=== PATIENT | female | born 1995 | race Caucasian/White ===

== ENCOUNTER 2021-09-16 16:12 | Outpatient (CLI) | payer BC ==
[~2021-09-16] VITALS: Ht 160 cm; Wt 103.2 kg
[2021-09-16 16:25] VITALS: BP 173/77; PULSE 69; TEMP 98.2
[2021-09-16] MEDS ORDERED: SINGULAIR 110 MG/TAB PO (16:42)
[2021-09-16] MEDS ORDERED: CLARITIN 1010 MG/TAB PO (16:42)
[2021-09-16 17:26] LABS: COLLECTION METHOD CLEAN CATCH
[2021-09-16 17:29] VITALS: BP 177/78; PULSE 72
[2021-09-16 17:31] LABS: HEMATOCRIT 37.3 % (37.0-47.0); HEMOGLOBIN 12.8 g/dl (12.5-16.0); MEAN CELL VOLUME 88 fl (80.0-100.0); MEAN CORPUSCULAR HEMOGLOBIN 30 pg (27.0-31.0); MEAN CORPUSCULAR HGB CONC 34 g/dl (33.0-37.0); MEAN PLATELET VOLUME 10.6 fl (7.4-10.4); PLATELET COUNT 179 K/mm3 (130-400); RED BLOOD COUNT 4.22 M/mm3 (4.10-5.30); REDCELL DISTRIBUTION WIDTH-CV 13.2 % (11.5-14.5)
--- NOTE | 2021-09-16 17:31 | NUR ---
7753 PATIENT HERE FROM OFFICE FOR HIGH BLOOD PRESSURES. EFM ON FHT 150 BABY VERY ACTIVE. NO CONTRACTIONS. BP 188/85. ASSESSMENT COMPLETED. LABS ORDERED PER DR CAREY AT THIS TIME. NO COMPLAINTS OF ABD PAIN. SLIGHT HEADACHE NOTED.
[2021-09-16 17:34] LABS: PH 7 (5-8); SQUAMOUS EPITHELIAL 0-2 /hpf (0-10); URINE APPEARANCE Clear (CLEAR/HAZY); URINE BACTERIA None Seen (NONE SEEN); URINE BILIRUBIN Negative (NEGATIVE); URINE BLOOD Negative (NEGATIVE); URINE COLOR Straw (YELLOW); URINE GLUCOSE Negative (NEGATIVE); URINE KETONE Negative (NEGATIVE); URINE LEUKOCYTE ESTERASE Negative (NEGATIVE); URINE NITRATE Negative (NEGATIVE); URINE PROTEIN(semi-quant) 3+ (NEGATIVE); URINE RBC 0-2 /hpf (0-2); URINE UROBILINOGEN Negative (NEGATIVE); URINE WBC 0-2 /hpf (0-2)
--- NOTE | 2021-09-16 17:43 | NUR ---
1740 PROCARDIA AND BETAMETHASONE IM ORDERED PER DR CAREY. BOTH GIVEN AT THIS TIME. LAB STAFF AT BEDSIDE FOR LAB DRAW. 174 DR CAREY AT BEDSIDE WITH LAB RESULTS FROM OFFICE. WILL DISCUSS RESULTS WITH PATIENT BUT PLANS TO SHIP TO [facility].
[2021-09-16 17:49] VITALS: BP 177/78; PULSE 72
--- NOTE | 2021-09-16 17:51 | NUR ---
[facility]50 [facility] IN RIGHT HAND#20. DR CAREY AT BEDSIDE TO TALK WITH PATIENT AND . ADVERTISING COPY WRITER UPDATED AND ON FLOOR AT THIS TIME
[2021-09-16 17:56] LABS: BILIRUBIN,TOTAL 0.2 mg/dL (0.2-1.2); CALCIUM 9.3 mg/dL (8.4-10.2); CREATININE, serum 0.66 mg/dL (0.57-1.11); POTASSIUM 4.2 mmol/L (3.5-4.5); TOTAL PROTEIN 5.7 gm/dL (6.2-8.1)
[2021-09-16 18:41] VITALS: BP 147/98; PULSE 83
--- NOTE | 2021-09-16 18:43 | NUR ---
1725 PROCARDIA XL 60 MG PO GIVEN AND BETAMETHASONE 12MG IM TO RIGHT GLUT PER THIS NURSE. FHT 150 BABY VERY ACTIVE. BP 172/80. DR CAREY AT BEDSIDE. 1750 #20 HEPLOCK TO RIGHT HAND. PATIENT TOLERATES WELL. 1800 DR CAREY AT BEDSIDE SONO TO COMFIRM PRESENTATION. CEPHALIC PRESENTATION NOTED. 181#20 TO LEFT WRIST PER A STANTON RN. PATIENT TOLERATES WELL. 181 DR CAREY AT BEDSIDE TO ANSWER ALL PATIENT AND QUESIONS. LABETOLOL 40 MG IV GIVEN BY A STANTON RN PER ORDER. BABY REMAINS VERY ACTIVE AND FHT 145. MAGNESIUM 4 GM IV PB GIVEN AT THIS TIME PER DR CAREY ORDER OVER 20 MIN PER PROTOCOL. RAPHAEL ALSO PLACED AT THIS TIME PER DR BUTCHER. 1820 PATIENT FEELING VERY HOT. COOL RAG PLACED ON FOREHEAD. BP 147/98. 1838 MAGNESIUM AT 2GMOR 50 CC PER HOUR AT THIS TIME, WITH LR AT 75 CC/HR. AT BEDSIDE. REFLEXES WNL. PATIETN DENIES NEEDS.
--- NOTE | 2021-09-16 19:11 | NUR ---
1909 LABETOTOL 40 MG IV GIVEN BY A STANTON MORRISSEY AT THIS TIME
[2021-09-16 19:40] VITALS: BP 167/96; PULSE 75
--- NOTE | 2021-09-16 19:44 | NUR ---
1939 EMS STAFF AT BEDSIDE. REPORT GIVEN. NO QUESTIONS AT THIS TIME. REPORT CALLED TO [facility] TRINID[facility] TO A MELQUIADES RN ON TH OB FLOOR. DENIES NNEDS AT THIS TIME
== END 2021-09-16 19:40 | disposition short-term general hospital (02) ==
LOC: LDRO 16:12
PROVIDERS: Obstetrics & Gynecology
DX: O13.3 Gestational [pregnancy-induced] hypertension without significant proteinuria, third trimester (principal); Z3A.31 31 weeks gestation of pregnancy
CPT/HCPCS: J0702; J3475; J7120